=== PATIENT | male | born 1985 | race Caucasian/White ===

== ENCOUNTER 2020-11-12 17:52 | Emergency (ER) | payer OTHER, SELFPAY ==
[2020-11-12 18:12] VITALS: BP 154/83; PULSE 83; RESP 16; TEMP 36.7; O2SAT 97
--- NOTE | 2020-11-12 18:12 | ED.SKABFB ---
HPI - Skin/Abscess/Foreign Bdy General Chief complaint: Extremity Injury, Lower Stated complaint: Swollen Rt Leg Time Seen by Provider: 11/12/20 18:12 Source: patient Mode of arrival: ambulatory Limitations: no limitations History of Present Illness HPI narrative: Jaiden Meyer is a 35 yo male with no PMH [facility] with bilateral lower leg open sores from a rash that started 2 weeks ago. 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 EYES: Denies visual changes, redness, discharge. ENT: Denies rhinorrhea, congestion, sore throat, otalgia. CARDIOVASCULAR: Denies chest pain, palpitations, edema. RESPIRATORY: Denies dyspnea, wheezing, cough GASTROINTESTINAL: Denies abdominal pain, nausea, vomiting, diarrhea. GENITOURINARY: Denies dysuria, hematuria, abnormal discharge SKIN: Has bilateral rash with infected areas both lower legs NEUROLOGIC: Denies numbness, or focal weakness. PSYCHIATRIC: Denies anxiety or depression. PMFSH Past Medical History Medical History No acute medical problems Family History Family History Father Heart disease Social History Social History (Updated 11/12/20 @ 18:22 by Sirisha Platt CNP) Smoking packs per day: 1.5 Smoking cigarettes per day: 30.0 Smoking status: Current every day smoker Tobacco type: cigarettes Alcohol intake: never Comments At time of signature, I agree with nursing past medical, surgical, social and family history. There is no relevant family history pertinent to the presenting complaint. Blood pressure is elevated at this visit discussed with patient about following with his PCP for blood pressure check Exam Narrative: GENERAL: This is a well-nourished, morbidly obese ,well-developed patient, in mild distress. HEAD: normocephalic, atraumatic. EYES: . Sclera clear/white. Vision is grossly intact. EARS: External ears normal, Hearing grossly intact. NOSE: External nose normal . THROAT: Mucous membranes moist, NECK: Neck supple, CARDIOVASCULAR: Regular rate and rhythm without murmurs, gallops, or rubs. RESPIRATORY: Diminished r to auscultation. Breath sounds equal bilaterally with wheezes in all edwards; no rales, or rhonchi. GASTROINTESTINAL: Abdomen soft, SKIN: warm, intact with bilateral lower leg lesions that look infected and are weeping but he has a general rash on both legs the right leg is slightly edematous below the knee NEURO: awake, alert, and oriented to person, place and time. There were no obvious focal neurologic abnormalities. Steady gait EXTREMITIES: Normal range of motion. BACK: Nontender without deformity Course Course Emergency Course: Patient comes with rash to both lower legs that started about 2 weeks ago but is been very pruritic because of the heat and boots he wears to work and now part of some of the lesions are infected Discussed care of the rash which includes keeping them clean and dry showering every day and applying medication to the wounds and started on prednisone and Keflex Discussed quitting smoking and how to decrease and if he cannot do it on his own seeing his PCP to get medication to help him decrease his tobacco consumption. He has diffuse wheezing in his lungs from smoking Vital Signs Vital signs: Vital Signs Temperature 98.1 F 11/12/20 18:12 Pulse Rate 83 11/12/20 18:12 Respiratory Rate 16 11/12/20 18:12 Blood Pressure 154/83 H 11/12/20 18:12 Pulse Oximetry 97 09
[2020-11-12] MEDS: predniSONE 20 MG TABLET 60 MG PO (18:28)
== END 2020-11-12 18:35 | disposition home or self-care (01) ==
PROVIDERS: Emergency Provider Nurse Practitioner
DX: L03.116 Cellulitis of left lower limb (principal); L03.115 Cellulitis of right lower limb; F17.210 Nicotine dependence, cigarettes, uncomplicated
CPT/HCPCS: 99213; G0463; J7512

== ENCOUNTER 2023-01-03 07:49 | Emergency (ER) | payer OTHER, SELFPAY ==
--- NOTE | 2023-01-03 07:56 | ED.BACK ---
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 Blood pressure is elevated, patient states that he has a history of high blood pressure but is not currently taking any medication. MD elicited complaint: back pain Pertinent past history: prior back pain Onset (ago): day(s) Timing: constant Severity: moderate Pain scale (0-10): 8 Similar Symptoms Previously: Yes Quality: sharp and spasming Location: lumbar spine Radiation: right upper leg Exacerbating factors: movement Relieving factors: immobilization Context: while lifting, turning/twisting and bending Associated symptoms: denies other symptoms Review of Systems Review of Systems: All systems reviewed & are unremarkable except as noted in HPI and below PMFSH Past Medical History Medical History HTN (hypertension) Exam Const: General: healthy appearing Nutritional Appearance: well nourished Orientation/consciousness: patient oriented x3 Limitations: no limitations HENMT: Head: normal to inspection Chest: Chest palpation & inspection: normal inspection of the chest Resp: Effort & Inspection: normal respiratory effort Auscultation: clear to auscultation bilaterally Cardio: Rate: regular rate Rhythm: regular rhythm GI: GI Palp: Yes Soft to palpation Auscultation: normal bowel sounds : General: Yes bladder normal to palpation Back/Spine/Pelvis: Back: no CVA tenderness Skin: General skin exam: normal color Neuro: General: patient oriented x3, moves all extremities, no meningeal signs and no focal motor deficits Extrem: Other: L4 and 5 right paravertebral tenderness with palpation of the positive straight leg raising test on the right. Psych: Mental Status: mental status grossly normal Course Course Emergency Course: Patient received Toradol and muscle relaxer IM, reassessment patient's pain level has improved, blood pressure is elevated possibly secondary to pain will monitor blood pressure after receiving pain medication and muscle relaxer. Critical Care Time Critical Care Time Critical Care Time: No Discharge Plan Discharge Clinical Impression: Sciatica, Strain of lumbar region Patient Disposition: Home, Self-Care Condition: Stable Instructions: Antibiotic Form, Acute Low Back Pain (ED), Sciatica (ED) Follow-up/Referrals: Chan Saravia MD [Primary Care Provider] -
[2023-01-03 08:00] VITALS: BP 175/110; PULSE 97; RESP 20; TEMP 36.4; O2SAT 95
[2023-01-03] MEDS: ORPHENADRINE CITRATE 30 MG/ML 2 ML VIAL 60 MG IM (08:08)
[2023-01-03] MEDS: KETOROLAC (*BKC) 60 MG/2 ML VIAL IM (08:08)
[2023-01-03 08:30] VITALS: BP 175/106; PULSE 97; RESP 20; O2SAT 98
[2023-01-03] MEDS: LOSARTAN POTASSIUM 50 MG TABLET PO (08:38)
[2023-01-03 08:40] VITALS: BP 175/102; PULSE 97; RESP 20; TEMP 37.1; O2SAT 100
== END 2023-01-03 08:48 | disposition home or self-care (01) ==
PROVIDERS: Emergency Provider Emergency Medicine; PCP Internal Medicine
DX: M54.30 Sciatica, unspecified side (principal); S39.012A Strain of muscle, fascia and tendon of lower back, initial encounter; I10 Essential (primary) hypertension; X50.0XXA Overexertion from strenuous movement or load, initial encounter
CPT/HCPCS: 96372; 99284; A9270; J1885; J2360